=== PATIENT | female | born 1985 | race African-American/Black ===

== ENCOUNTER 2024-11-21 09:18 | Emergency (ER) | payer SELFPAY ==
[~2024-11-21] VITALS: Ht 149.9 cm; Wt 69.0 kg
[2024-11-21 10:13] LABS: BASOPHILS % 0.7 % (0.0-2.0); EOSINOPHILS % 1.2 % (0.0-5.0); HEMATOCRIT. 29.1 % (36.0-48.0); HEMOGLOBIN. 9.6 g/dL (12.0-16.0); MEAN CORPUSCULAR HEMOGLOBIN 27.2 pg (28.0-32.0); MEAN CORPUSCULAR HGB CONC 33.1 g/dL (31.0-37.0); MEAN CORPUSCULAR VOLUME 82.1 fL (81.0-99.0); MEAN PLATELET VOLUME 6.7 fl (7.4-10.4); MONOCYTES % 8.3 % (2.0-8.0); NEUTROPHILS % 66.8 % (40.0-76.0); PLATELET 454 x1000/uL (130-400); RED BLOOD CELL COUNT 3.54 mill/uL (4.2-5.4); RED CELL DISTRIBUTION WIDTH 17.4 % (11.6-14.6); WHITE BLOOD COUNT 7.3 x1000/uL (4.5-11.0)
[2024-11-21 10:26] LABS: CHLORIDE 107 mEq/L (98-107); POTASSIUM 3.4 mEq/L (3.5-5.1); SODIUM 144 mEq/L (136-145)
[2024-11-21 10:27] LABS: CARBON DIOXIDE 29 mEq/L (21-32)
[2024-11-21 10:28] LABS: CALCIUM 9.1 mg/dL (8.7-10.4)
[2024-11-21 10:32] LABS: CREATININE 0.8 mg/dL (0.6-1.0)
[2024-11-21 10:33] LABS: GLUCOSE 92 mg/dL (70-105); UREA NITROGEN BLOOD 11 mg/dL (9-23)
[2024-11-21] MEDS: LEVETIRACETAM 500MG PREMIX 100 ML IV ONE ×2 (10:57→11:31)
[2024-11-21] MEDS: ONDANSETRON HCL 4MG/2ML INJ IV STA (10:58)
[2024-11-21] MEDS: MORPHINE SULFATE 4 MG/ML INJ (FOR IV/IM USE) IV STA (10:58)
[2024-11-21] MEDS: SODIUM CHLORIDE 0.9% 1,000 ML IV ONE (11:07)
[2024-11-21 11:16] LABS: CLARITY URINE CLEAR (CLEAR); COLOR URINE YELLOW (YELLOW); GLUCOSE URINE NEGATIVE (NEGATIVE); KETONES URINE NEGATIVE (NEGATIVE); LEUKOCYTE ESTERASE URINE 3+ (NEGATIVE); NITRITE URINE NEGATIVE (NEGATIVE); OCCULT BLOOD URINE TRACE (NEGATIVE); PH URINE 5.5 (4.5-8.0); PROTEIN URINE NEGATIVE (NEGATIVE); SPECIFIC GRAVITY URINE 1.015 (1.005-1.030); UROBILINOGEN URINE 0.2 E.U./dL (0.2-1.0)
[2024-11-21] MEDS: LORAZEPAM 2MG/ML UD SYRINGE IV SCH (11:28)
[2024-11-21] MEDS ORDERED: LORAZEPAM 2MG/ML INJ IV ONE (11:30)
[2024-11-21 11:58] LABS: BACTERIA URINE NONE SEEN; SQUAMOUS EPITHELIAL CELL URINE 2+ /lpf (RARE/1+); WBC URINE 25-50 /hpf (0-2); YEAST URINE NONE SEEN
[2024-11-21] MEDS: DIPHENHYDRAMINE 50MG/ML VIAL IV STA (12:55)
[2024-11-21] MEDS ORDERED: ONDA-239 PO (13:00)
[2024-11-21] MEDS ORDERED: PROM25TA13 MT (13:00)
[2024-11-21] MEDS ORDERED: OXYC-100 MT (13:00)
[2024-11-21 13:20] VITALS: PULSE 100; RESP 20; O2SAT 88
[2024-11-21] MEDS: IPRATROPIUM/ALBUTEROL 0.5-3(2.5)MG/3ML NEB HHN ONE (13:20)
[2024-11-21 14:10] VITALS: BP 111/71; PULSE 91; RESP 20; TEMP 36.7; O2SAT 96
== END 2024-11-21 14:29 | disposition home or self-care (01) ==
LOC: ER 09:28
DX: G40.909 Epilepsy, unspecified, not intractable, without status epilepticus (principal); R11.2 Nausea with vomiting, unspecified; C56.9 Malignant neoplasm of unspecified ovary; Z79.899 Other long term (current) drug therapy; Z90.49 Acquired absence of other specified parts of digestive tract
CPT/HCPCS: 80048; 81003; 85025; 87086; 36415; 76830; 76856; 94640; 93005; 96365; 96366; 96375; 99285; J1953; J1200; J2060; J2405; J2270; Z7610 ×7; J7030; 94070